=== PATIENT | female | born 1970 ===

== ENCOUNTER → 2021-04-04 | Outpatient (CLI) | payer BC ==
--- NOTE | 2021-04-05 12:59 | Diagnostic Imaging Report ---
INDICATION: Routine screening. COMPARISON: 06/24/2014. TECHNIQUE: 2D and 3D bilateral screening mammography was performed with CAD. FINDINGS: Both breasts are heterogeneously dense, limiting the sensitivity of mammography. A nodular density in the outer aspect of the left breast appears similar to the prior exam, most likely representing a benign nodule. Additional views would be recommended for confirmation. No other masses are seen. No malignant appearing microcalcifications are identified. The axillae are unremarkable. IMPRESSION: Left breast density. Additional views and ultrasound are recommended for further evaluation. ACR BI-RADS Category 0: Incomplete. (Needs additional imaging evaluation). Result letter will be mailed to the patient. Note: At least 10% of breast cancer is not imaged by mammography. Dictated by: Dictated on workstation # [id number]
== END ==
LOC: RAD 10:52
PROVIDERS: ATTEND Nurse Practitioner Family
DX: Z12.31 Encounter for screening mammogram for malignant neoplasm of breast (principal)
CPT/HCPCS: 77063; 77067

== ENCOUNTER → 2021-05-26 | Outpatient (CLI) | payer BC ==
--- NOTE | 2021-05-26 13:42 | Diagnostic Imaging Report ---
INDICATION: Left breast density. Patient presents for additional views. CORRELATION is made with screening study from 04/04/2021 as well as prior mammogram from 06/24/2014. Unilateral left 2-D and 3-D diagnostic mammography was performed. This included spot compression CC and ML views as well as conventional 90 degree lateral views. There is a persistent nodular density in the outer left breast at approximately the 3:00 location 6 cm from the nipple. No suspicious microcalcifications are seen. IMPRESSION: BI-RADS 0 Persistent nodularity in the outer left breast, as described. Further evaluation with ultrasound is recommended and will be performed today. ACR BI-RADS Category 0: Incomplete. (Needs additional imaging evaluation). Result letter will be mailed to the patient. Note: At least 10% of breast cancer is not imaged by mammography. Dictated by: Dictated on workstation # [id number]
--- NOTE | 2021-05-26 14:19 | Diagnostic Imaging Report ---
INDICATION: Left breast nodule. CORRELATION is made with diagnostic mammogram earlier the same day and screening mammogram from 04/04/2021. Sonographic interrogation of the outer left breast was performed. There is a lobulated solid appearing nodule at the 2:00 location approximately 2 cm from the nipple measuring 1.5 x 1.4 x 0.5 cm. No internal vascularity is seen. No significant posterior acoustic shadowing is identified. IMPRESSION: BI-RADS Category 4 Lobulated hypoechoic solid nodule at the 2:00 location of the left breast, likely accounting for the mammographic density. While this may represent a fibroadenoma, tissue sampling is recommended. This would be amenable to ultrasound-guided core biopsy. ACR BI-RADS Category 4: Suspicious abnormality. Result letter will be mailed to the patient. Note: At least 10% of breast cancer is not imaged by mammography. Dictated by: Dictated on workstation # [id number]
== END ==
LOC: RAD 13:15
PROVIDERS: ATTEND Nurse Practitioner Family
DX: N63.20 Unspecified lump in the left breast, unspecified quadrant (principal)
CPT/HCPCS: 76642; 77065; G0279

== ENCOUNTER → 2021-06-06 | Outpatient (CLI) | payer BC ==
[~2021-06-06] MED LIST: LIDOCAINE 1% INJ 20 ML 20 ML VIAL INJ ONE
--- NOTE | 2021-06-07 12:20 | Diagnostic Imaging Report ---
INDICATION: Status post left breast biopsy with ultrasound guidance. TECHNIQUE: Unilateral left 2D CC and ML mammography was performed after the patient underwent ultrasound-guided biopsy. FINDINGS: Images demonstrate a marker clip just posterior to the lobulated mass in the outer portion of the left breast. IMPRESSION: Marker clip placement, status post ultrasound-guided left breast biopsy. Dictated by: Dictated on workstation # [id number]
--- NOTE | 2021-06-07 12:37 | Diagnostic Imaging Report ---
Indication: Left breast mass. Patient presents for ultrasound-guided core biopsy. Patient brought to the ultrasound suite placed on table in the supine position. Ultrasound imaging of the left breast was performed to evaluate appropriate entry site. Left breast was then prepped and draped in usual sterile fashion. Small amount of 1% lidocaine was utilized for local anesthetic lesion. Multiple core biopsies were obtained of the lobulated solid mass at 2:00 location left breast 2 cm from the nipple utilizing a 14-gauge achieve needle. A marker clip was then deployed. Hemostasis was obtained using manual compression. Patient tolerated the procedure well and was sent for postprocedure mammogram in satisfactory condition. IMPRESSION: Successful ultrasound guided core biopsy of the lobulated solid mass 2:00 location left breast, 2 cm from the nipple. Pathology results are currently pending. Dictated by: Dictated on workstation # [id number]
== END ==
LOC: RAD 15:00
PROVIDERS: ATTEND Nurse Practitioner Family
DX: N63.21 Unspecified lump in the left breast, upper outer quadrant (principal)
CPT/HCPCS: 19083; 77065; A4648; G0279